=== PATIENT | female | born 1995 | race Two or more races ===

== ENCOUNTER 2024-08-12 18:44 | Inpatient (IN) | payer BC, SELFPAY ==
[2024-08-12] VITALS (72 sets, daily range): BP systolic 0–162; BP diastolic 0–97; PULSE 71–134; RESP 20–99; TEMP 36.5; O2SAT 87–100
--- NOTE | 2024-08-12 19:12 | PD.LDHP ---
Documentation for date of: 08/12/24 OB Labor/Induct. HPI History of Present Illness History of present illness: H and P dicated on the STAT line in [facility] [id number] Meds Home Medications and Allergies Home Medications ?Medication ?Instructions ?Recorded ?Confirmed ?Type adalimumab 40 mg/0.4 mL 40 mg subcut Q14D 08/28/19 07/07/24 History subcutaneous syringe kit (Humira(CF)) Allergies Allergy/AdvReac Type Severity Reaction Status Date / Time Sulfa (Sulfonamide Allergy Unknown Verified 07/06/24 07:21 Antibiotics)
[2024-08-12 20:05] LABS: Basophils % (Auto) 0 % (0-2.5); Eosinophils # (Auto) 0.1 Thou/mm3 (0.0-0.5); Eosinophils % (Auto) 1 % (0-10); Hematocrit 35.4 % (36.0-46.0); Hemoglobin 12.1 g/dL (12.0-16.0); Immature Granulocytes % (Auto) 1 % (0-0); Immature Granulocytes Auto 0.11 Thou/mm3 (0.00-0.00); Lymphocytes # (Auto) 2.4 Thou/mm3 (1.0-4.8); Lymphocytes % (Auto) 22 % (10-50); Mean Corpuscular HGB Conc 34.2 g/dl (31.0-37.0); Mean Corpuscular Hemoglobin 30.2 pg (25.0-35.0); Mean Corpuscular Volume 88 fL (80-100); Monocytes # (Auto) 0.7 Thou/mm3 (0.0-0.8); Monocytes % (Auto) 6 % (0-12); Neutrophils # (Auto) 7.6 Thou/mm3 (1.8-7.7); Neutrophils % (Auto) 70 % (37-80); Nucleated Red Blood Cell % 0 /100 WBC (0); Platelet Count 280 Thou/mm3 (140-440); RDW Standard Deviation 44.8 fL (36.4-46.3); Red Blood Count 4.01 Miln/mm3 (4.00-5.20); White Blood Count 10.8 Thou/mm3 (3.6-11.0)
--- NOTE | 2024-08-12 20:15 | ESHP_ITS ---
RE: SHELBY SUMMERS : 1995 DATE OF ADMISSION: 08/12/2024 HISTORY OF PRESENT ILLNESS: This is a 28-year-old 3, para 2-0-0-2 with intrauterine at 39 weeks who presents to labor and delivery complaining of leaking and persistent contractions and is noted to be in early labor. Her care was complicated by admission at 34 weeks gestation for influenza B and superimposed community acquired pneumonia. She was treated with Tamiflu and IV antibiotics and was discharged home after 48 hours. Otherwise, her care has been uncomplicated. She reports normal movement, ALLERGIES: SULFA. MEDICATIONS: 1. Sertraline 50 mg 1 tablet p.o. daily. 2. vitamin 1 tablet p.o. daily. 3. Humira 40 mg 1 injection subcutaneously weekly. PAST MEDICAL HISTORY: Crohn's disease, anxiety disorder, major depression, congenital anomaly of the kidney, iron deficiency anemia, influenza B, community-acquired pneumonia. PAST SURGICAL HISTORY: Cholecystectomy and colonoscopy. FAMILY HISTORY: Denies. OBSTETRIC HISTORY: In 2016, 39 weeks, normal delivery, no complications. In 2017, 40 week, normal vaginal delivery, no complications. REVIEW OF SYSTEMS: She denies any chest pain, palpitations, cough, fever, shortness of breath or lower extremity pain. PHYSICAL EXAMINATION: VITAL SIGNS: Blood pressure is 121/68, heart rate 76, respirations 18, temperature is 98.2. HEENT: Oropharynx and sclerae are clear. LUNGS: Clear to auscultation bilaterally. HEART: Regular rate and rhythm. ABDOMEN: Gravid, term size consistent with estimated weight 7.5 pounds. PELVIC: See RN notes. EXTREMITIES: Nontender. SKIN: No gross rashes or lesions. NEUROLOGIC: No focal deficits. ASSESSMENT AND PLAN: Intrauterine at 39 weeks. Early labor. Anticipate spontaneous vaginal delivery. Informed consent was obtained. The patient was made aware of the risks, complications, alternatives, and benefits of operative vaginal delivery and delivery and agrees with these modes of delivery if indicated. DT: 19:12:24 TT: 20:15:00 Ref: [id number] - TID: [id number]
[2024-08-12] MEDS: fentaNYL CIT INJ 50 mCg/ML AMP 2ML 100 MCG IV (20:21)
[2024-08-12 20:57] LABS: ROM Kit Lot # 57809118; ROM Swab Mixed By: YOUNB; Rupture of Fetal Membranes Negative (Negative); Swb Mxed in Solvent 1 min? Yes
[2024-08-12 21:32] LABS: Syphilis Nonreactive (Nonreactive)
[2024-08-12] MEDS: MINERAL OIL 30 ML UDC TOP (23:55)
[2024-08-12] MEDS: OXYTOCIN in NS 20 units 20 UNIT/1,000 ML BAG 125 UNIT IV (23:57)
[2024-08-13] VITALS (43 sets, daily range): BP systolic 106–137; BP diastolic 63–85; PULSE 64–104; RESP 16–18; TEMP 36.5–37.3; O2SAT 86–100; BMI 27.7
--- NOTE | 2024-08-13 00:09 | ESDS_ITS ---
DS: Providers Provider Date of admission: 08/12/24 19:43 Primary care physician: Physician No Primary/Family Admitting Provider: Fernandez Reed MD Attending Provider on Admission: Fernandez Reed MD Attending Provider on DC: Fernandez Reed MD Discharging Provider: Fernandez Reed MD DS: Diagnosis Problem List Completed Was Problem List Reviewed/Reconciled?: Yes Summary/Hosp Course Brief History: H and P dicated on the STAT line in [facility] [id number] Time Spent with Patient Time attestation: Total time spent providing and/or coordinating discharge services: Exam Vital Signs Temp Pulse Resp BP Pulse Ox 97.7 F 94 20 137/75 H 100 08/12/24 18:50 08/13/24 00:02 08/12/24 18:50 08/13/24 00:02 08/13/24 00:08 Discharge Plan Plan Patient Disposition: HOME (Self Care) Patient condition on transfer: Stable Prescriptions/Referrals Prescriptions/Med Rec: New ibuprofen 600 mg tablet 600 mg PO Q6H PRN (Reason: pain) Qty: 30 0RF ferrous sulfate 324 mg (65 mg iron) tablet,delayed release (DR/EC) 324 mg PO BID Qty: 60 1RF No Action Humira(CF) 40 mg/0.4 mL syringe kit 40 mg SC Q14D cephalexin 500 mg capsule 500 mg PO TID Qty: 21 0RF ferrous sulfate 325 mg (65 mg iron) tablet 325 mg PO Q OTHER DAY Qty: 90 1RF Referrals: No Primary/Family,Physician [Primary Care Provider] - Patient/Caregiver Discharge Instructions Discharge Activity: activity as tolerated Other Discharge Activity Instructions:: Follow up office 6 weeks. Print Language: Upper Sorbian Stand Alone Forms: Gertrudis Award Info., Patient Portal Info Letter Planned Discharge Date 08/14/24
[2024-08-13] MEDS: BENZO/LANO/ALOE (Dermoplast) 60 GM CAN 1 SPRAY TOP (00:23)
[2024-08-13] MEDS: IBUPROFEN TAB 400 MG TABLET 800 MG PO ×2 (00:24→08:44)
[2024-08-13 00:38] LABS: Amphetamine/Metham Scrn,Ur OB Negative (Negative); Benzoylecgonine Screen, Ur OB Negative (Negative); Opiate Screen,Urine OB Negative (Negative); THC Screen,Urine OB Positive (Negative); THC U Confirm* See Sep Rpt
[2024-08-13 06:06] LABS: Basophils % (Auto) 0 % (0-2.5); Eosinophils % (Auto) 0 % (0-10); Hematocrit 25.1 % (36.0-46.0); Immature Granulocytes % (Auto) 1 % (0-0); Immature Granulocytes Auto 0.14 Thou/mm3 (0.00-0.00); Lymphocytes # (Auto) 2.3 Thou/mm3 (1.0-4.8); Lymphocytes % (Auto) 12 % (10-50); Mean Corpuscular HGB Conc 33.9 g/dl (31.0-37.0); Mean Corpuscular Hemoglobin 30.6 pg (25.0-35.0); Mean Corpuscular Volume 90 fL (80-100); Monocytes # (Auto) 1.1 Thou/mm3 (0.0-0.8); Monocytes % (Auto) 6 % (0-12); Neutrophils # (Auto) 14.7 Thou/mm3 (1.8-7.7); Neutrophils % (Auto) 81 % (37-80); Nucleated Red Blood Cell % 0 /100 WBC (0); Platelet Count 234 Thou/mm3 (140-440); RDW Standard Deviation 46.7 fL (36.4-46.3); Red Blood Count 2.78 Miln/mm3 (4.00-5.20); White Blood Count 18.2 Thou/mm3 (3.6-11.0)
[2024-08-13 06:07] LABS: Hemoglobin 8.5 g/dL (12.0-16.0)
[2024-08-13] MEDS: SERTRALINE HCL 25 MG TABLET PO (08:34)
--- NOTE | 2024-08-13 15:35 | ESPR_ITS ---
RE: SHELBY SUMMERS : 1995 DATE OF SERVICE: 08/13/2024 S: On day #1, the patient denies any problem or complaints. She is voiding. She is ambulating. She is tolerating diet. She is passing flatus. She denies any excessive vaginal bleeding. She denies any dizziness or lightheadedness. She denies any chest pain, palpitations, shortness of breath or lower extremity pain. O: Vital Signs: Blood pressure 117/70, heart rate 72, respirations 18, temperature 98.6, pulse oximetry 98% on room air. Lungs: Clear to auscultation bilaterally. Heart: Regular rate and rhythm. Abdomen: Fundus is firm. Extremities: Nontender. Laboratory Data: Hemoglobin pre-delivery is 12.1. Post delivery is 8.5. A: day #1 status post spontaneous vaginal delivery. P: computer systems consultant. Encourage ambulation. Possible discharge home tomorrow. DT: 13:09:55 TT: 15:34:00 Ref: [id number] - TID: [id number]
[2024-08-14 05:01] VITALS: BP 117/77; PULSE 75; RESP 16; TEMP 36.7; O2SAT 98
--- NOTE | 2024-08-14 06:39 | OBDSUM_ITS ---
Data ([facility]) Data Hx Section: No : 3 Para: 2 Term: 2 : 0 : 0 Delivery Data ([facility]) Labor Data ROM Date: 08/12/24 ROM Time: 12:30 Rupture Type: SROM Amniotic Fluid: Clear Delivery Data EDC: 08/19/24 EDC calculated by:: LMP/early US confirmation Labor Onset Stage 1 Date: 08/12/24 Labor Onset Stage 1 Time: 18:45 Labor Onset Stage 2 Date: 08/12/24 Labor Onset Stage 2 Time: 23:26 Delivery Date: 08/12/24 Delivery Time: 23:56 Gestational age (weeks): 39 Gestational age (days): 0 Placenta Delivery Date: 08/13/24 Placenta Delivery Time: 00:02 Delivered by: Fernandez Reed Delivery nurse: Linnea Lawrence Other staff at delivery: Nurse Other staff at delivery: Pily Donis Delivery Method Delivery: Vaginal Delivery Type: Spontaneous Presentation: Vertex Position: OA Anesthesia Type Primary Anesthesia: Epidural Placenta Placenta Delivery: Spontaneous Episiotomy Episiotomy: None Lacerations #1: Periurethral: 2nd degree Perineal repair Sutures used for repair: 3.0 Chromic EBL Estimated blood loss (ml): 200 Umbilical Cord Umbilical Vessels: 3 Nuchal Cord: None Body Cord: None Additional Procedures None Complications Complications: None Data ([facility]) [place] Data Infant Gender: Female Infant Weight Grams: 3310 1 Minute Total: 9 5 Minute Total: 9
[2024-08-14 07:23] LABS: Basophils % (Auto) 0 % (0-2.5); Eosinophils # (Auto) 0.1 Thou/mm3 (0.0-0.5); Eosinophils % (Auto) 1 % (0-10); Hematocrit 22.4 % (36.0-46.0); Immature Granulocytes % (Auto) 1 % (0-0); Immature Granulocytes Auto 0.09 Thou/mm3 (0.00-0.00); Lymphocytes # (Auto) 3.1 Thou/mm3 (1.0-4.8); Lymphocytes % (Auto) 31 % (10-50); Mean Corpuscular HGB Conc 33.5 g/dl (31.0-37.0); Mean Corpuscular Hemoglobin 30.6 pg (25.0-35.0); Mean Corpuscular Volume 91 fL (80-100); Monocytes # (Auto) 0.5 Thou/mm3 (0.0-0.8); Monocytes % (Auto) 5 % (0-12); Neutrophils # (Auto) 6.1 Thou/mm3 (1.8-7.7); Neutrophils % (Auto) 61 % (37-80); Nucleated Red Blood Cell % 0 /100 WBC (0); Platelet Count 238 Thou/mm3 (140-440); RDW Standard Deviation 47.2 fL (36.4-46.3); Red Blood Count 2.45 Miln/mm3 (4.00-5.20)
[2024-08-14 07:26] LABS: Hemoglobin 7.5 g/dL (12.0-16.0)
--- NOTE | 2024-08-14 07:41 | PC.CC ---
Addendum entered by Hermila Spencer 08/14/24 08:26: ASW provided psychoeducation regarding baby blues and Post- Depression, as well as counseling groups at [facility]. SW provided community resources: Warm Line and Crisis Line. Original Note: Patient is a 28-year-old, female, present to for delivery of baby girl, Mehreen Barnett. ASW, Hermila, met with patient [id number] to do initial assessment due mother testing positive for THC. ASW introduced herself, role in the agency, reason for visit, and discussed limits of confidentiality. Patient appeared alert and oriented to self, time, place, and situation. At bedside was Father of Baby (FOB) whom mother provided consent to remain in the room during assessment. Patient made good eye contact. Patient was cooperative. Patient?s behavior appeared ordinary. No signs of delusions or hallucinations. Mother denied the use of THC and reports she does not know why she tested positive as she does not use THC. Mother reports with her first child she believes had undiagnosed Post- Depression. Mother reports she is currently taking 50mg of Zoloft that is prescribed by Dr. Reed. Mother reports she knows she can seek services for mental health at [facility] for mental health. Mother denied past or current suicidal and homicidal ideations, visual and auditory hallucination. Mother has all supplies she needs for her new born and plans to breast feed. Mother is receiving WIC and SNAP. Mother reports her support system includes the FOB and her extended family. Mother denied CWS involvement and denied domestic violence. ASW, filed a SCAR with [facility] and faxed report. ASW updated bedside RN.
--- NOTE | 2024-08-14 08:05 | ESPR_ITS ---
Subjective Subjective Interval history: Patient denies any problem or complaint. She is voiding and ambulating and tolerating tolerating a regular diet. She denies any excessive vaginal bleeding. She denies any dizziness or lightheadedness. She denies any chest pain palpitation shortness of breath or lower extremity pain. She denies any depression or anxiety. Exam Vital Signs Temp Pulse Resp BP Pulse Ox O2 Del Method 98.1 F 75 16 117/77 98 Room Air 08/14/24 05:01 08/14/24 05:01 08/14/24 05:01 08/14/24 05:01 08/14/24 05:01 08/14/24 05:01 Routine Respiratory Exam Comments: Clear to auscultation bilaterally Routine Cardiovascular Exam Comments: Regular rate and rhythm Routine Extremities Exam Comments: Nontender or edema Objective Labs 08/14/24 06:51 Labs: Laboratory Results - last 24 hr 08/14/24 06:51 WBC 10.0 D RBC 2.45 L Hgb 7.5 L Hct 22.4 L MCV 91 MCH 30.6 MCHC 33.5 RDW Std Deviation 47.2 H Plt Count 238 Neut % (Auto) 61 Lymph % (Auto) 31 [place] % (Auto) 5 Eos % (Auto) 1 Baso % (Auto) 0 Neut # (Auto) 6.1 Lymph # (Auto) 3.1 [place] # (Auto) 0.5 Eos # (Auto) 0.1 Baso # (Auto) 0.0 Immature Gran # (Auto) 0.09 H Absolute Nucleated RBC 0.00 Immature Gran % 1 H Nucleated RBC % 0 Assessment & Plan Assessment Comment Assessment comment: day #2 status post spontaneous vaginal delivery Anemia but hemodynamically stable Plan Comment Plan Comment: Discharge home Follow-up in the office in 6 weeks Continue iron 325 mg p.o. twice daily Discharge instructions given
[2024-08-14 08:30] VITALS: BP 119/74; PULSE 81; RESP 16; TEMP 36.9; O2SAT 98
[2024-08-14] MEDS: SERTRALINE HCL 25 MG TABLET PO (09:10)
--- NOTE | 2024-08-14 09:25 | PC.NURSE ---
notified patient of RUB not immune and offered MMR vaccine, patient declined and stated she is taking Humira and doesn't want to get any live vaccine.
== END 2024-08-14 13:10 | disposition home or self-care (01) | DRG 807 ==
LOC: S4SX 08-13 00:06 → S4NX 08-13 02:45
PROVIDERS: Admitting Provider Specialist; Visit Provider Specialist
DX: O70.1 Second degree perineal laceration during delivery (principal); Z37.0 Single live birth; Z3A.39 39 weeks gestation of pregnancy; Z88.2 Allergy status to sulfonamides; O90.81 Anemia of the puerperium; Z87.09 Personal history of other diseases of the respiratory system
CPT/HCPCS: 36415; 59025; 59409; 80307; 84112; 85025; 86780; 86850; 86900; 86901; 94762; J2590; J2795; J3010; A9270